=== PATIENT | female | born 1985 | race Caucasian/White ===

== ENCOUNTER 2017-12-18 08:51 | Emergency (ER) | payer MEDICAID, OTHER ==
[~2017-12-18] VITALS: Ht 157.5 cm; Wt 55.0 kg
[~2017-12-18 08:51] MED LIST: CLIN1CAP6 PO
[2017-12-18] MEDS ORDERED: GADODIAMIDE PF 287 MG/ML 20 ML VIAL (for RAD MRI) IVCONTRAST ONE (08:52)
[2017-12-18] MEDS ORDERED: GADODIAMIDE PF 287 MG/ML 20 ML VIAL (for RAD MRI) IV PUSH ONE (08:52)
[2017-12-18 08:58] VITALS: BP 160/65; PULSE 85; RESP 18; TEMP 98.1; O2SAT 100
--- NOTE | 2017-12-18 09:53 | PD ---
HPI Chief Complaint: Headache Time Seen by Provider: 09:30 Travel History International Travel<30 days: No Contact w/Intl Traveler<30days: No Traveled to known affect area: No History of Present Illness HPI 32-year-old female complains of headache, vision loss, right arm and right leg weakness. Patient states that patient started having headache, pain behind the right eye, with mild intermittent right arm right leg weakness for the past week. Patient states that she had transient loss of vision of the right eye for about 8 minutes this morning. Patient states that the vision loss resolved completely. Patient started having headache about 30 minutes after that. Patient states the headache aching headache diffuse over the head. Patient denies any neck pain. Patient states that she had nausea with a headache. Patient denies any photophobia. Patient denies any chest pain or shortness of breath. Patient denies abdominal pain. Patient denies any vomiting or diarrhea. Patient denies any dysuria frequency. Patient denies any chance of being . Patient has family history of CVA and migraine. Patient is a smoker. Patient denies history hypertension, diabetes, hyperlipidemia. Patient denies any history of TIA or CVA or migraine in the past. [facility] Past Medical History Medical History: Denies Significant Hx Diminished Hearing: No Tetanus Vaccination: Unknown ?: Not Tubal Ligation: Yes Past Surgical History Surgical History: No Previous Surgery Social History Alcohol Use: Yes (Occasionally) Tobacco Use: Yes (3/4 PPD) Substance Use: No Allergies-Medications (Allergen,Severity, Reaction): Coded Allergies: No Known Allergies (Unverified Adverse Reaction, Unknown, 12/18/17) Reported Meds & Prescriptions Reported Meds & Active Scripts Active No Active Prescriptions or Reported Medications Review of Systems General / Constitutional: No: Fever Eyes: Positive: Visual changes HENT: Positive: Headaches Cardiovascular: No: Chest Pain or Discomfort Respiratory: No: Shortness of Breath Gastrointestinal: No: Abdominal Pain Genitourinary: No: Dysuria Musculoskeletal: No: Pain Skin: No Rash Neurologic: Positive: Weakness, Headache Psychiatric: No: Depression Endocrine: No: Polydipsia Hematologic/Lymphatic: No: Easy Bruising Physical Exam Narrative GENERAL: Well-nourished, well-developed patient. SKIN: Focused skin assessment warm/dry. HEAD: Normocephalic. EYES: No scleral icterus. No injection or drainage. Pupils 2 mm equal reactive. NECK: Supple, trachea midline. No JVD or lymphadenopathy. CARDIOVASCULAR: Regular rate and rhythm without murmurs, gallops, or rubs. RESPIRATORY: Breath sounds equal bilaterally. No accessory muscle use. GASTROINTESTINAL: Abdomen soft, non-tender, nondistended. MUSCULOSKELETAL: No cyanosis, or edema. BACK: Nontender without obvious deformity. No CVA tenderness. Neurologic exam: Patient is awake and alert oriented 3. No obvious focal neurologic deficit. Data Data Last Documented VS Vital Signs Date Time Temp Pulse Resp B/P (MAP) Pulse Ox O2 Delivery O2 Flow Rate FiO2 12/18/17 10:50 94 17 121/57 (78) 100 Room Air 12/18/17 08:58 98.1 Orders Orders Electrocardiogram (12/18/17 09:41) Complete Blood Count With Diff (12/18/17 09:41) Comprehensive Metabolic Panel (12/18/17 09:41) Prothrombin Time / Inr (Pt) (12/18/17 09:41) Act Partial Throm Time (Ptt) (12/18/17 09:41) C-Reactive Protein (Crp) (12/18/17 09:41) Westergren Sedimentation Rate (12/18/17 09:41) Iv Access Insert/Monitor (12/18/17 09:41) Ecg Monitoring (12/18/17 09:41) Oximetry (12/18/17 09:41) Mri Brain W&W/O Contrast (12/18/17 09:41) Mra Brain W/O Contrast (Cow) (12/18/17 09:41) Mra Carotids W Contrast (12/18/17 09:41) Gadodiamide Pf Inj (Omniscan Pf Inj) (12/18/17 08:52) Echo 2d Comp With Doppler (12/18/17 ) Rapid Plasma Regin (Rpr) W Ttr (12/18/17 16:05) Bita Screen (12/18/17 16:05) Thyroid Stimulating Hormone (12/18/17 16:05) Free Thyroxine (T4) (12/18/17 16:05) Vitamin B1 (Thiamine) (12/18/17 16:05) Vitamin B12 (12/18/17 16:05) Creatine Kinase (Cpk) (12/18/17 16:05) Methylmalonic Acid (Mma) (12/18/17 16:05) Holter Monitor Recording (12/18/17 16:05) Troponin I (12/18/17 16:05) Lipid Profile (12/18/17 16:05) Drug Screen, Random Urine (12/18/17 16:05) Anti-Thrombin, Functional (12/18/17 16:05) Cardiolipin Abs Igg,Igm,Iga (12/18/17 16:05) Protein C Activity (12/18/17 16:05) Protein S Activity (12/18/17 16:05) Factor V (5) Mutation (Leiden) (12/18/17 16:05) Prothrombin [id number] Mutation (12/18/17 16:05) Lupus Anticoagulant Drvvt (12/18/17 16:05) Factor Viii (8) Activity Ref (12/18/17 16:05) Folate, Serum (12/18/17 16:05) Mthr Genotype (12/18/17 16:05) Aspirin Ec (Ecotrin Ec) (12/18/17 16:15) Diet Regular Basic (12/18/17 Dinner) Protein Electrophoresis Serum (12/18/17 16:00) Aspirin Chew (Aspirin Chew) (12/18/17 17:15) Ed Discharge Order (12/18/17 17:14) Labs Laboratory Tests Test 12/18/17 09:48 White Blood Count 6.6 TH/MM3 Red Blood Count 4.53 MIL/MM3 Hemoglobin 14.3 GM/DL Hematocrit 41.4 % Mean Corpuscular Volume 91.5 FL Mean Corpuscular Hemoglobin 31.5 PG Mean Corpuscular Hemoglobin Concent 34.4 % Red Cell Distribution Width 13.2 % Platelet Count 279 TH/MM3 Mean Platelet Volume 8.9 FL Neutrophils (%) (Auto) 63.0 % Lymphocytes (%) (Auto) 29.6 % Monocytes (%) (Auto) 6.0 % Eosinophils (%) (Auto) 0.8 % Basophils (%) (Auto) 0.6 % Neutrophils # (Auto) 4.2 TH/MM3 Lymphocytes # (Auto) 2.0 TH/MM3 Monocytes # (Auto) 0.4 TH/MM3 Eosinophils # (Auto) 0.1 TH/MM3 Basophils # (Auto) 0.0 TH/MM3 CBC Comment DIFF FINAL Differential Comment Erythrocyte Sedimentation Rate 8 mm/hr Prothrombin Time 10.3 SEC Prothromb Time International Ratio 1.0 RATIO Activated Partial Thromboplast Time 25.2 SEC Blood Urea Nitrogen 6 MG/DL Creatinine 0.78 MG/DL Random Glucose 91 MG/DL Total Protein 7.7 GM/DL Albumin 3.9 GM/DL Calcium Level 8.9 MG/DL Alkaline Phosphatase 90 U/L Aspartate Amino Transf (AST/SGOT) 18 U/L Alanine Aminotransferase (ALT/SGPT) 23 U/L Total Bilirubin 0.3 MG/DL Sodium Level 140 MEQ/L Potassium Level 3.8 MEQ/L Chloride Level 109 MEQ/L Carbon Dioxide Level 24.2 MEQ/L Anion Gap 7 MEQ/L Estimat Glomerular Filtration Rate 87 ML/MIN C-Reactive Protein LESS THAN 0.29 MG/DL Cholesterol Level 179 MG/DL [facility] Medical Decision Making Medical Screen Exam Complete: Yes Emergency Medical Condition: Yes Interpretation(s) 11:54 AM. CBC within normal limits. Sed rate 8. CMP within normal limits. 1426 PM. Last Impressions Neck Magnetic Resonance Angiography 12/18/17940 Signed Impressions: Service Date/Time: Monday, December 18, 2017 11:27 - CONCLUSION: Normal MRA carotids. Miah Priest MD Head Magnetic Resonance Angiography 12/18/17940 Signed Impressions: Service Date/Time: Monday, December 18, 2017 11:27 - CONCLUSION: 1. Anatomic variant of the [place] of [place] as above. 2. Otherwise, intracranial vessels are all patent without aneurysmal disease Luke Drew MD Brain MRI [id number] Signed Impressions: Service Date/Time: Monday, December 18, 2017 11:27 - CONCLUSION: Normal MRI of the brain. Russell Carrillo MD 1715 p.m. Echocardiogram reviewed by Dr. King, maintenance shop technician was normal. Differential Diagnosis Differential diagnosis including complex migraine, TIA, CVA. Narrative Course 32-year-old female with intermittent headache, right eye pain, transient loss of vision, intermittent right arm and leg weakness for week. Diagnosis Primary Impression: Transient neurologic deficit Additional Impression: Cephalgia Qualified Codes: R51 - Headache Patient Instructions: General Instructions Additional Instructions: Aspirin 81 mg daily. Follow-up with maintenance shop technician and neurologist. Return if recurrent problem. Med/Other Pt SpecificInfo: No Meds Exist/No RX given Scripts No Active Prescriptions or Reported Meds Disposition: 01 DISCHARGE HOME Condition: Rubens Patel MD Dec 18, 2017 09:53
[2017-12-18 10:30] LABS: AUTOMATED NEUTROPHIL # 4.2 TH/MM3 (1.8-7.7); BASOPHIL % 0.6 % (0.0-2.0); EOSINOPHIL # 0.1 TH/MM3 (0-0.4); EOSINOPHIL % 0.8 % (0.0-4.0); HEMATOCRIT 41.4 % (35.0-46.0); HEMOGLOBIN 14.3 GM/DL (11.6-15.3); LYMPH % 29.6 % (9.0-44.0); MEAN CELL VOLUME 91.5 FL (80.0-100.0); MEAN CORPUSCULAR HEMOGLOBIN 31.5 PG (27.0-34.0); MEAN CORPUSCULAR HGB CONC 34.4 % (32.0-36.0); MEAN PLATELET VOLUME 8.9 FL (7.0-11.0); MONOCYTE # 0.4 TH/MM3 (0-0.9); PLATELET COUNT 279 TH/MM3 (150-450); RED BLOOD COUNT 4.53 MIL/MM3 (4.00-5.30); RED CELL DISTRIBUTION WIDTH 13.2 % (11.6-17.2); WHITE BLOOD COUNT 6.6 TH/MM3 (4.0-11.0)
[2017-12-18 10:39] LABS: PROTHROMBIN TIME - PATIENT 10.3 SEC (9.8-11.6)
[2017-12-18 10:50] VITALS: BP 121/57; PULSE 94; RESP 17; O2SAT 100
[2017-12-18 10:50] LABS: ALBUMIN 3.9 GM/DL (3.4-5.0); AST (GOT) 18 U/L (15-37); BICARBONATE 24.2 MEQ/L (21.0-32.0); BLOOD UREA NITROGEN 6 MG/DL (7-18); CALCIUM 8.9 MG/DL (8.5-10.1); CHLORIDE 109 MEQ/L (98-107); CREATININE 0.78 MG/DL (0.50-1.00); GLOMERULAR FILTRATION RATE 87 ML/MIN (>89); GLUCOSE,RANDOM 91 MG/DL (74-106); SODIUM (NA) 140 MEQ/L (136-145)
[2017-12-18 10:51] LABS: C-REACTIVE PROTEIN LESS THAN 0.29 MG/DL (0.00-0.30)
[2017-12-18 10:54] LABS: ALKALINE PHOSPHATASE 90 U/L (45-117); ALT (GPT) 23 U/L (10-53); TOTAL BILIRUBIN ADULT 0.3 MG/DL (0.2-1.0); TOTAL PROTEIN 7.7 GM/DL (6.4-8.2)
--- NOTE | 2017-12-18 12:32 | RADRPT ---
EXAM DATE/TIME: 12/18/2017 11:27 [facility] COMPARISON: No previous studies available for comparison. INDICATIONS : CVA. Right eye blindness and headache times 1 week. CONTRAST: 20 cc Omniscan (gadodiamide) IV MEDICAL HISTORY : None. SURGICAL HISTORY : Tubal ligation. ENCOUNTER: Initial ACUITY: 1 day PAIN SCORE: 3/10 LOCATION: head TECHNIQUE: Multiplanar, multisequence MRI of the brain was performed both prior to and following the administrat ion of paramagnetic contrast. FINDINGS: CEREBRUM: The ventricles are normal for age. No evidence of midline shift, mass lesion, hemorrhage or acute in farction. No extraaxial fluid collections are seen. The pituitary gland and suprasellar cistern are normal in configuration. WHITE MATTER: No significant signal abnormalities are seen in the white matter. POSTERIOR FOSSA: The cerebellum and brainstem are intact. The 4th ventricle is midline. The cerebellopontine angle is unremarkable. The cerebellar tonsils are normal in position. DIFFUSION IMAGING: No focal areas of restricted diffusion are seen. No evidence of acute infarction. EXTRACRANIAL: The visualized portions of the orbits and paranasal sinuses are unremarkable. POST-CONTRAST: No abnormal areas of parenchymal or dural enhancement. No evidence of blood-brain barrier breakdown. CONCLUSION: Normal MRI of the brain. Russell Carrillo MD on December 18, 2017 at 12:30 Board Certified Radiologist. This report was verified electronically.
--- NOTE | 2017-12-18 12:32 | RADRPT ---
EXAM DATE/TIME: 12/18/2017 11:27 [facility] COMPARISON: No previous studies available for comparison. INDICATIONS : CVA. Right eye blindness and cephalgia times 1 week. MEDICAL HISTORY : None. SURGICAL HISTORY : Tubal ligation. ENCOUNTER: Initial ACUITY: 1 day PAIN SCORE: 3/10 LOCATION: Head Please note a normal MRA of the brain does not entirely exclude the possibility of a small aneurysm, nor the possibility of distal intracranial vessel disease. TECHNIQUE: 3D time of flight MRA was performed. Source images, multiplanar STS MIP, and 3D volume MIP reconstru ctions were reviewed. FINDINGS: There is excellent visualization of the major intracranial arteries out to the second-order branch ve ssels. There is no evidence for aneurysm, vessel truncation or stenosis, and no evidence for vascula r malformation. Anatomic variant of the [place] of [place]. 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 The anterior communicating artery is widely patent. CONCLUSION: 1. Anatomic variant of the [place] of [place] as above. 2. Otherwise, intracranial vessels are all patent without aneurysmal disease Luke Drew MD on December 18, 2017 at 12:26 Board Certified Radiologist. This report was verified electronically.
--- NOTE | 2017-12-18 13:39 | RADRPT ---
EXAM DATE/TIME: 12/18/2017 11:27 [facility] COMPARISON: No previous studies available for comparison. INDICATIONS : Stroke. Right eye blindness and cephalgia times 1 week. CONTRAST: 20 cc Omniscan (gadodiamide) IV MEDICAL HISTORY : None. SURGICAL HISTORY : Tubal ligation. ENCOUNTER: Initial ACUITY: 1 day PAIN SCORE: 0/10 LOCATION: neck Percent stenosis is calculated using the diameter of the stenotic region over the diameter of the nor mal distal internal carotid artery. TECHNIQUE: Bolus infused MRA of the extracranial circulation was performed using a neurovascular coil. Post pro cessing was performed including rotating subvolume maximum intensity projections of each carotid tracie ry, rotating full volume maximum intensity projections of both carotid arteries, sagittal and coronal sliding thin slab reformations of each carotid artery, and left oblique sliding thin slab reformatio n through the aortic arch to include the origin of the arch branch vessels. FINDINGS: AORTIC ARCH: There is a three vessel origin of the great vessels from the aorta. No evidence of ostial narrowing. RIGHT CAROTID: The common carotid artery is intact. The carotid bulb has a normal configuration without ulceration or narrowing. The internal carotid artery lumen is smooth without stenosis. The external carotid ar trini is intact. LEFT CAROTID: The common carotid artery is intact. The carotid bulb has a normal configuration without ulceration or narrowing. The internal carotid artery lumen is smooth without stenosis. The external carotid ar trini is intact. VERTEBRALS: The vertebral arteries have a symmetric diameter. No stenotic lesions are seen. CONCLUSION: Normal MRA carotids. Miah Priest MD on December 18, 2017 at 13:35 Board Certified Radiologist. This report was verified electronically.
--- NOTE | 2017-12-18 16:02 | EKG ---
Date Performed: 12/18/2017 Time Performed: 10:08:14 PTAGE: 32 years EKG: Sinus rhythm POSSIBLE RIGHT VENTRICULAR CONDUCTION DELAY BORDERLINE ECG NO PREVIOUS TRACING DOCTOR: Omero Benavidez Interpretating Date/Time 12/18/2017 16:02:18
[2017-12-18] MEDS ORDERED: ASPIRIN EC 325 MG TABEC PO SCH (16:15)
[2017-12-18 16:54] LABS: CHOLESTEROL 179 MG/DL (120-200)
--- NOTE | 2017-12-18 16:55 | MB ---
cc: Alex Herron MD DATE: 12/18/2017 HISTORY OF PRESENT ILLNESS: A 32-year-old right-handed woman who has really been very healthy. She had 1 miscarriage. She lives at home with her and 3 young children. She tells me that she has about maybe 6-8 headaches a year when she is under stress. She has had a severe throbbing headache in the past and about 6 months ago, right frontal throbbing. She says she may have had some black squares in her vision with that. She has had a headache for about a week, right frontal mild and then this morning she was getting her child ready for kindergarten and suddenly her vision went entirely black in the right eye which lasted about 8 minutes and then gradually came back in a jigsaw puzzle type pattern. It took about 30 minutes for the vision loss to go away entirely and then about 15 minutes later, she developed a headache and right frontal mild pressure-like headache. No chest pain or palpitations. No recent fever or other illness. She does not take an aspirin or any blood thinners. REVIEW OF SYSTEMS: Denies any blood clots, hypertension, diabetes, hypercholesterolemia, IN, CABG, stent, angioplasty, AFib, Coumadin, renal, hepatic, or pulmonary disease, thyroid disease, lupus, ulcer, cancer, seizure or stroke. SOCIAL HISTORY: She is a smoker and I have asked her to quit. She is not a drinker. No drugs. Lives with her and children. FAMILY HISTORY: Negative for cancer, seizure or stroke. ALLERGIES: NO KNOWN DRUG ALLERGIES. MEDICATIONS: No medications. PHYSICAL EXAMINATION: VITAL SIGNS: Afebrile, 85, 17, 121/75. NECK: There were no carotid bruits. HEART: Regular rhythm. I do not detect a murmur. HEENT: Pupils are equal. The right disk is sharp. Visual mejia are full. Extraocular movements intact without nystagmus. Face is symmetric with normal sensation. Tongue was midline. She says her forehead and both of her 10 temples are tender at this point. NEUROLOGICAL EXAMINATION: There is no drift. She had normal strength in upper and lower extremities bilaterally. DTRs are trace throughout. Toes downgoing bilaterally. Pinprick is intact throughout. She is not ataxic on [id number]. Speech fluent. She is not aphasic. IMAGING STUDIES: MRI of the brain is entirely normal. MRA of the neck and [place] of [place] also normal. Her CRP, sedimentation rate, CBC, UA was normal except for a moderate leukocyte esterase, but only 2 white cells. Basic metabolic profile is normal. Glucose 91. LFTs, total protein normal. EKG, they had called it in, showed sinus rhythm. IMPRESSION: Neurological exam is normal. I reviewed all of her films. No evidence for stroke. Certainly an embolic event to the right eye could be considered, although she is rather young for that I would say. RECOMMENDATIONS: What I have recommended is a baby aspirin, check an echo and if that is normal, she could be discharged. I will also check a hypercoagulable screen on her and some additional blood work. I will be following her up as an outpatient. It would be good to have ophthalmology see her also. We will get an Holter hooked up in addition. She can go home with that and bring her back. We will check a lipid profile on her, a troponin, a drug screen. Although this may have been a migraine, we need to rule out anything more nefarious at this time. The onset of the vision was quicker than I would like to see for a usual migraine. MD CYNDI Pathak/WESLEY , 04:08 PM , 04:53 PM
--- NOTE | 2017-12-18 16:59 | ECHRPT ---
Indication: EMBOLI- EVAL FOR CLOT CONCLUSIONS Normal left ventricular size. Wall thickness is normal. The left ventricular systolic function is normal with an estimated ejection fraction in the range of 60-65%. Normal atrial septal thickness without atrial level shunting by limited color doppler interrogation. BP: / HR: Rhythm: MEASUREMENTS (Male / Female) Normal Values Technical Quality: 2D ECHO LV Diastolic Diameter PLAX 4.1 cm 4.2 - 5.9 / 3.9 - 5.3 cm LV Systolic Diameter PLAX 3.2 cm IVS Diastolic Thickness 1.0 cm 0.6 - 1.0 / 0.6 - 0.9 cm LVPW Diastolic Thickness 0.6 cm 0.6 - 1.0 / 0.6 - 0.9 cm LV Relative Wall Thickness 0.4 RV Internal Dim ED PLAX 1.8 cm LA Systolic Diameter LX 3.1 cm 3.0 - 4.0 / 2.7 - 3.8 cm M-MODE Aortic Root Diameter MM 2.5 cm AV Cusp Separation MM 1.8 cm DOPPLER Mitral E Point Velocity 73.5 cm/s Mitral A Point Velocity 60.7 cm/s Mitral E to A Ratio 1.2 TR Peak Velocity 213.0 cm/s TR Peak Gradient 18.1 mmHg FINDINGS LEFT VENTRICLE Normal left ventricular size. Wall thickness is normal. The left ventricular systolic function is normal with an estimated ejection fraction in the range of 60-65%. RIGHT VENTRICLE Normal right ventricular size and systolic function. LEFT ATRIUM The left atrial size is normal. RIGHT ATRIUM The right atrial size is normal. ATRIAL SEPTUM Normal atrial septal thickness without atrial level shunting by limited color doppler interrogation. AORTA The aortic root and proximal ascending aorta are normal in size on limited imaging. MITRAL VALVE Structurally normal mitral valve. No mitral valve stenosis or regurgitation. AORTIC VALVE Trileaflet aortic valve. No aortic valve stenosis or regurgitation. TRICUSPID VALVE Structurally normal tricuspid valve. No tricuspid valve stenosis or regurgitation. PULMONARY VALVE The pulmonary valve is not well visualized. VESSELS The inferior vena cava is normal in size. PERICARDIUM No pericardial effusion. Deondre King MD, FACC (Electronically Signed) Final Date:18 December 2017 16:58
[2017-12-18] MEDS ORDERED: ASPIRIN 81 MG CHEW TAB CHEW ONE (17:15)
[2017-12-18 17:19] LABS: CHOLESTEROL/ HDL RATIO 3.89 RATIO; FOLATE 15.2 NG/ML (3.1-17.5); HDL CHOLESTEROL 45.9 MG/DL (40.0-60.0); LDL CHOLESTEROL 105 MG/DL (0-99); TRIGLYCERIDES 143 MG/DL (42-150); TROPONIN I LESS THAN 0.02 NG/ML (0.02-0.05)
--- NOTE | 2017-12-20 18:16 | HM ---
Date Performed: 12/18/2017 Time Performed: 17:21:00 HOOKUP DATE: 12/18/17 05:21:00 PM Fri ANALYSIS START TIME: 12/18/2017 5:26:00 PM ANALYSIS END TIME: 12/19/2017 4:46:10 PM PATIENT AGE: 32 PATIENT HEIGHT PATIENT WEIGHT DRUG LIST PATIENT DIAGNOSIS: medical TEST NARRATIVE: The patient's average heart rate was 96 BPM. Heart rates greater than 120 B PM were noted 28% of the time. No episodes of bradycardia were noted. No pauses exceeding 2.0 se conds were noted. 2 ventricular ectopics, which represented < 1% of the total beat count, were no leticia. The highest ventricular ectopic frequency occurred from 06:00 PM to 07:00 PM Fri. During this time 1 VE(s) occurred. Ventricular ectopics were observed as 2 isolated beat(s) only. No couplets o r runs were noted. 1 supraventricular ectopics, which represented < 1% of the total beat count, w ere noted. The highest supraventricular ectopic frequency occurred from 04:00 AM to 05:00 AM Sat. D uring this time 1 SVE(s) occurred. No episodes of ST depression (defined as -1.0 mm or more) were noted in channel 1. No episodes of ST depression (defined as -1.0 mm or more) were noted in channel 2. No episodes of ST depression (defined as -1.0 mm or more) were noted in channel 3. NO DIARY ENTR IES TEST INTERPRETATION: Patient has frequent sinus tachycardia with variable rates of 114 to 140 wi th 2 episodes of 169 and 171 present. The fastest HR was at 11:06 AM with a HR of 171 and the second fastest was at 12:23PM with a HR of 169. This appears to be sinus tachycardia, although I cannot see the onset or the offset of these episodes. No patient diary included to determine if the patient was exercising. There are slower sinus tachycardia episodes also recorded. Overall, the patient was in si nus tachycardia with a HR over 120 28% of the time. There was appropriate Sinus rhythm and some sinus bradycardia with the slowest rate of 49 bpm during sleeping hours. No ectopic atrial or ventricular rhythms were seen and no pauses were seen. No paroxysmal atrial arrhythmias are docume nted. Signed by : Guanakito Zuniga
[2017-12-22 14:35] LABS: PROTEIN C ACTIVITY 99 % (70 - 150); PROTEIN S ACTIVITY 91 % (50 - 160)
[2017-12-22 21:58] LABS: ALB/GLOB RATIO (SPE) 1.75 (1.39-2.23)
[2017-12-23 09:53] LABS: DRVVT 1:1 MIX ND (CORRECTED); DRVVT CONFIRM ND (NEGATIVE); HEXAGONAL PHASE CONFIRM ND (NEGATIVE)
[2017-12-23 11:53] LABS: FACTOR VIII(8) ACTIVITY 68 (50-180)
[2017-12-24 03:50] LABS: ANTI-THROMBIN III ACT 108 (80-120)
[2017-12-24 08:50] LABS: METHYLMALONIC ACID 0.13 nmol/mL (<=0.40)
[2017-12-24 11:51] LABS: CARDIOLIPIN IGG AB <9.4 GPL; CARDIOLIPIN IGM AB 9.8 MPL
== END 2017-12-18 18:48 | disposition home or self-care (01) ==
LOC: NEPE 08:51
DX: R29.818 Other symptoms and signs involving the nervous system (principal); R51 Headache; R00.0 Tachycardia, unspecified; R94.31 Abnormal electrocardiogram [ECG] [EKG]; F17.200 Nicotine dependence, unspecified, uncomplicated
CPT/HCPCS: 70544; 70548; 70553; 80053; 80061; 81240; 81291; 82550; 82607; 82746; 83921; 84165; 84425; 84439; 84443; 84484; 85025; 85240; 85300; 85303; 85306; 85610; 85613; 85652; 85730; 86038; 86140; 86147; 86592; 93005; 93225; 93226; 93306; 99284; A9579